=== PATIENT | female | born 1985 | race Caucasian/White ===

== ENCOUNTER 2017-04-03 11:59 | Emergency (ER) | payer SELFPAY ==
--- NOTE | 2017-04-03 13:14 | NUR ---
NO ANSWER IN ER LOBBY
--- NOTE | 2017-04-03 14:15 | NUR ---
NO ANSWER IN ER LOBBY
== END 2017-04-03 14:15 | disposition left against medical advice (07) ==
LOC: MED 11:59
DX: R68.89 Other general symptoms and signs (principal); Z53.21 Procedure and treatment not carried out due to patient leaving prior to being seen by health care provider

== ENCOUNTER 2022-02-25 20:41 | Emergency (ER) | payer MEDICAID ==
[~2022-02-25] VITALS: Ht 154.9 cm; Wt 54.4 kg
[2022-02-25 20:45] VITALS: BP 124/68
--- NOTE | 2022-02-25 20:51 | NUR ---
Patient ambulated to bed 6.
[2022-02-25] MEDS ORDERED: KETOROLAC 60 MG/2 ML VIAL IM ONE (21:00)
--- NOTE | 2022-02-25 21:18 | NUR ---
36 YO F BIB SELF FOR PT HEADACHE FOR 3 WEEKS. PAIN 5/10. PT ALSO SAYS SOB FOR 1 WEEK. NAUSEA FOR 1 WEEK . PT TAKES ADVIL FOR PAIN. ; PT ALSO HAS RADIATING PAIN FROM ARMPIT TO PELVIC AREA. PT ALSO FEELS TIRED . PT HAS HX OF LUPUS. SKIN IS PINK/WARM/DRY; AAOX4 WITH EVEN AND STEADY GAIT; LUNGS CLEAR BL; HR EVEN AND REGULAR; PT DENIES ANY FEVER, CP, SOB, OR COUGH AT THIS TIME; VSS; PATIENT POSITIONED FOR COMFORT; HOB ELEVATED; BEDRAILS UP X2; BED DOWN. ER MD MADE AWARE OF PT STATUS. PT HAS COVID VACCINE. RX VIT D , FOLIC ACID , HYDROCYCLINE
--- NOTE | 2022-02-25 22:10 | NUR ---
Dr. Garzon examming patient.
[2022-02-25] MEDS ORDERED: ACETAMINOPHEN EXTRA STRENGTH 500 MG TAB PO ONE (22:15)
--- NOTE | 2022-02-25 22:18 | NUR ---
Blood for labwork drawn from right arm per batch mixer. Patient tolerated well.
[2022-02-25 22:27] LABS: BASOPHILS % (AUTO) 0.3 % (0.0-2.0); EOSINOPHILS # (AUTO) 0.1 K/uL (0-0.4); HEMOGLOBIN 13.7 g/dL (12.0-16.0); LYMPHOCYTES # (AUTO) 1.7 K/uL (2.5-16.5); LYMPHOCYTES % (AUTO) 19.7 % (20.5-51.1); MEAN CORPUSCULAR HEMOGLOBIN 30 pg (27-31); MEAN CORPUSCULAR HGB CONC 34 g/dL (33-37); MEAN CORPUSCULAR VOLUME 88.7 fL (80-94); MONOCYTES # (AUTO) 0.7 K/uL (0.8-1.0); MONOCYTES % (AUTO) 7.9 % (1.7-9.3); NEUTROPHILS % (AUTO) 71.1 % (42.2-75.2); PLATELET COUNT (AUTO) 244 K/uL (140-450); RED BLOOD CELL COUNT(AUTO) 4.51 MIL/uL (4.20-5.40); RED CELL DISTRIBUTION WIDTH 12.6 % (11.6-13.7); WHITE BLOOD COUNT (AUTO) 8.4 K/uL (4.8-10.8)
[2022-02-25 22:27] LABS: APPEARANCE,URINE CLEAR (CLEAR); BILIRUBIN,URINE NEGATIVE (NEGATIVE); BLOOD, URINE NEGATIVE (NEGATIVE); COLOR,URINE YELLOW (YELLOW); LEUKOCYTE ESTERASE ,URINE 1+ (NEGATIVE); NITRITE, URINE NEGATIVE (NEGATIVE); UGLUCOSE NEGATIVE (NEGATIVE)
[2022-02-25 22:37] LABS: RBC,URINE 0-5 /HPF (0-5); WBC,URINE 0-5 /HPF (0-5)
[2022-02-25 22:42] LABS: ALBUMIN 3.3 g/dL (3.4-5.0); ANION GAP 8.5 (8-16); CARBON DIOXIDE 26.2 mmol/L (21-32); CREATININE 0.5 mg/dL (0.6-1.3); POTASSIUM 3.7 mmol/L (3.5-5.1); TOTAL BILIRUBIN 0.3 mg/dL (0.0-1.0)
--- NOTE | 2022-02-25 23:06 | NUR ---
PT LAYING DOWN QUIETLY
[2022-02-25] MEDS ORDERED: ACET-10509 PO (23:20)
[2022-02-25] MEDS ORDERED: IBUP-2213 PO (23:20)
--- NOTE | 2022-02-25 23:42 | NUR ---
Patient discharged with v/s stable. Written and verbal after care instructions given and explained. Patient alert, oriented and verbalized understanding of instructions. Ambulatory with steady gait. All questions addressed prior to discharge. ID band removed. Patient advised to follow up with PMD. Rx of ACETAMETAPHIN / IBRUPROFEN given. Patient educated on indication of medication including possible reaction and side effects. Opportunity to ask questions provided and answered.
--- NOTE | 2022-02-25 23:43 | NUR ---
The patient's care was reviewed and supervised by Ginger Wright RN.
[2022-02-25 23:48] VITALS: BP 121/67
== END 2022-02-25 23:42 | disposition home or self-care (01) ==
LOC: EDBD → MED 20:41
DX: J18.9 Pneumonia, unspecified organism (principal); R51.9 Headache, unspecified
CPT/HCPCS: 36415; 71045; 80053; 81001; 81025; 85025; 87086; 96372; 99284; J1885

== ENCOUNTER 2022-03-02 20:43 | Emergency (ER) | payer MEDICAID ==
[~2022-03-02] VITALS: Ht 154.9 cm; Wt 61.2 kg
[~2022-03-02 20:43] MED LIST: ACET-10509 PO; IBUP-2213 PO
[2022-03-02 21:04] VITALS: BP 137/88
--- NOTE | 2022-03-02 21:09 | NUR ---
PT TAKEN TO LOBBY.
--- NOTE | 2022-03-02 23:21 | NUR ---
PT AMBULATED TO BED 11
--- NOTE | 2022-03-02 23:34 | NUR ---
Note undone in EDM - 03/03/22 at 0148 by OMAR 39 YO/F PRESENTS TO ED W C/O FEELING TIRED, WORN OUT, BONE PAIN "BUT NOT THAT MUCH" X1 DAY AFTER WALKING AROUND AND HEADACHE 6/10 PRESSURE NON-RAD CONSTANT SINCE 1000, + DIARRHEA, + NAUSEA. PT ADDS FEELING STRESSED LATELY AND BELIEVES THE STRESS OR HER VITAMIN D LEVELS MAY BE CAUSING THE SYMPTOMS. PT DENIES ANY CHEST PAIN, SOB, BLURRY VISION, DIZZYNESS, FEVERS, CHILLS, VOMITING OR BLOOD IN STOOL. PT TOOK IBUPROFEN 200 AT 1300 W SOME RELIEF. BREATHING EVEN AND UNLABORED. WILL CONTINUE TO MONITOR. PMH: PRE-DIABETES ALLERHIES: DENIES
--- NOTE | 2022-03-02 23:34 | NUR ---
36 YO/F PRESENTS TO ED W C/O FEELING A SMALL BUMP IN GROING AREA BETWEEN L LEG AND VAGINAL AREA THAT SWELLS WHEN WALKING AND IS PAINFUL 9/10 PULSATING CONSTANT NON-RAD X1 WEEK, + BODY ACHES, CHILLS. PT DENIES ANY FEVERS, N/V/D, PUSULENT DISCHARGE OR URINE SYMPTOMS. PMH: LUPUS ALLERGIES: DENIES
--- NOTE | 2022-03-03 00:03 | NUR ---
Female Supervisor [employer] accompanied female patient for Pelvic Exam.
[2022-03-03] MEDS: cephALEXin 500 MG CAP PO ONE (00:15)
[2022-03-03] MEDS: SULFAMETH/TRIMETH DS 800/160MG 1 TAB PO ONE (00:16)
--- NOTE | 2022-03-03 01:16 | NUR ---
Dr. Leslie examining patient.
[2022-03-03] MEDS: LIDOCAINE MPF 1% 10 MG/ML VIAL INJ ONE (01:33)
--- NOTE | 2022-03-03 01:33 | NUR ---
Female Airframe And Powerplant Mechanic accompanied female patient for i&d procedure of genitalia..
[2022-03-03] MEDS ORDERED: CEPH-588 PO (01:37)
[2022-03-03] MEDS ORDERED: ACET-8386 PO (01:37)
[2022-03-03] MEDS ORDERED: SULF-59 PO (01:37)
[2022-03-03] MEDS ORDERED: NAPR-54 PO (01:37)
[2022-03-03] MEDS: KETOROLAC 60 MG/2 ML VIAL IM ONE (01:57)
[2022-03-03 02:02] VITALS: BP 128/80
--- NOTE | 2022-03-03 02:02 | NUR ---
The patient's care was reviewed and supervised by Ginger Wright RN.
--- NOTE | 2022-03-03 02:02 | NUR ---
Patient discharged with v/s stable. Written and verbal after care instructions given and explained. Patient alert, oriented and verbalized understanding of instructions. Ambulatory with steady gait. All questions addressed prior to discharge. ID band removed. Patient advised to follow up with PMD. Rx of HYDROCODONE/ACETAMINOPHEN 5-325, CEPHALEXIN, NAPROXEN AND BACTRIM DS TABLET given. Patient REVIEWED on indication of medication including possible reaction and side effects. Opportunity to ask questions provided and answered.
== END 2022-03-03 02:02 | disposition home or self-care (01) ==
LOC: EDBD 20:43 → MED 20:43
DX: N75.0 Cyst of Bartholin's gland (principal); R51.9 Headache, unspecified
CPT/HCPCS: 56420; 99284; J1885; J2001

== ENCOUNTER 2022-03-04 08:49 | Emergency (ER) | payer MEDICAID ==
[~2022-03-04] VITALS: Ht 129.5 cm; Wt 60.3 kg
[~2022-03-04 08:49] MED LIST changes: +ACET-8386 PO; +CEPH-588 PO; +NAPR-54 PO; +SULF-59 PO
[2022-03-04 08:53] VITALS: BP 106/43
--- NOTE | 2022-03-04 09:02 | NUR ---
PATIENT AMBULATED TO BED 3.
--- NOTE | 2022-03-04 09:06 | NUR ---
Note undone in EDM - 03/04/22 at 0910 by [email or web address] 36Y FEMALE BIB SELF DUE TO NEEDING RECHECK. PT SEEN FOR BATHOLINE CYST/ABCESS ON L UPPER THIGH/VAGINAL REGION. PT DENIES ANY PAIN AT THIS TIME. PT A&OX4. DENIES ANY FEVER/CHILLS/SOB/N/V. PMH: LUPUS NKA
--- NOTE | 2022-03-04 09:10 | NUR ---
36Y FEMALE BIB SELF DUE TO NEEDING RECHECK. PT SEEN FOR BATHOLINE CYST/ABCESS ON L UPPER THIGH/VAGINAL REGION. UPON ASSESSMENT/PALPATION MINOR CYST NOTED ON PT L UPPER THIGH. NO REDNESS/EDEMA NOTED. PT DENIES ANY PAIN AT THIS TIME. PT A&OX4. DENIES ANY FEVER/CHILLS/SOB/N/V. PMH: LUPUS NKA
--- NOTE | 2022-03-04 09:29 | NUR ---
UPON ASSESSMENT MINOR ABCESS NOTED INSIDE PATIENT VAGINAL REGION. SOME DISCHARGE NOTED WITH MINOR OPENING.
[2022-03-04 09:39] VITALS: BP 106/43
--- NOTE | 2022-03-04 09:40 | NUR ---
Patient discharged with v/s stable. Written and verbal after care instructions given and explained. Patient verbalized understanding. Ambulatory with steady gait. All questions addressed prior to discharge. Advised to follow up with PMD.
== END 2022-03-04 09:40 | disposition home or self-care (01) ==
LOC: MED 08:49
DX: N75.1 Abscess of Bartholin's gland (principal); Z79.1 Long term (current) use of non-steroidal anti-inflammatories (NSAID); Z79.891 Long term (current) use of opiate analgesic; Z79.2 Long term (current) use of antibiotics; Z79.899 Other long term (current) drug therapy
CPT/HCPCS: 99281

== ENCOUNTER 2022-06-10 22:18 | Emergency (ER) | payer MEDICAID ==
[~2022-06-10] VITALS: Ht 154.9 cm; Wt 59.9 kg
[2022-06-10 22:24] VITALS: BP 130/92
--- NOTE | 2022-06-10 22:24 | NUR ---
PT AMBULATED TO BED #9
--- NOTE | 2022-06-10 22:25 | NUR ---
Patient BIB by family from home. C/O MOUTH PAIN X 3 DAYS. Patient reported, had ulcer on her lip and pain for 3 days. PMHx: Abram
--- NOTE | 2022-06-10 22:29 | NUR ---
Dr. Monroy examining patient.
[2022-06-10] MEDS ORDERED: SULF-59 PO ×3 (22:38→22:50)
[2022-06-10 22:42] VITALS: BP 130/92
== END 2022-06-10 22:42 | disposition home or self-care (01) ==
LOC: MED 22:18
DX: K13.0 Diseases of lips (principal)
CPT/HCPCS: 99283

== ENCOUNTER 2022-07-25 15:02 | Emergency (ER) | payer MEDICAID ==
[~2022-07-25] VITALS: Ht 154.9 cm; Wt 61.0 kg
[2022-07-25 15:19] VITALS: BP 133/97
--- NOTE | 2022-07-25 15:24 | NUR ---
PT AMB TO BED 4.
[2022-07-25] MEDS ORDERED: LIDOCAINE MPF 1% 10 MG/ML VIAL INJ ONE (16:30)
--- NOTE | 2022-07-25 16:39 | NUR ---
PT C/O VAGINAL PAIN X5 DAYS, HX OF [place] CYST STATES FEELS SIMILAR. CHAPERONED PA WITH VAGINAL EXAM.
[2022-07-25] MEDS ORDERED: HYDROcodone/APAP 5/325 MG 1 TAB TAB PO ONE (17:20)
[2022-07-25] MEDS ORDERED: ONDANSETRON 4 MG ODT PO ONE (17:20)
[2022-07-25] MEDS ORDERED: AMOX-1230 PO (17:22)
[2022-07-25] MEDS ORDERED: IBUP-2213 PO (17:22)
[2022-07-25 17:32] VITALS: BP 115/70
== END 2022-07-25 17:32 | disposition home or self-care (01) ==
LOC: MED 15:02
DX: N75.1 Abscess of Bartholin's gland (principal)
CPT/HCPCS: 56405; 81002; 81025; 99284; J2001; Q0162

== ENCOUNTER 2022-07-28 08:29 | Emergency (ER) | payer MEDICAID ==
[~2022-07-28] VITALS: Ht 157.5 cm; Wt 60.0 kg
[~2022-07-28 08:29] MED LIST changes: +AMOX-1230 PO
[2022-07-28 08:50] VITALS: BP 117/84
--- NOTE | 2022-07-28 10:19 | NUR ---
37/F PRESENTS TO ED FOR RECHECK. PATIENT HAD A [place] CYST DRAINED AND PACKED HERE ON WEDNESDAY AND WAS TOLD TO RETURN TODAY FOR RECHECK. PATIENT DENIES WORSENING PAIN, FEVERS OR CHILLS. NO REDNESS OR TENDERNESS TO SITE, PATIENT DENIES ANY OTHER MEDICAL COMPLAINTS AT THIS TIME.
--- NOTE | 2022-07-28 10:47 | NUR ---
Female Is Architect accompanied female patient DURING Exam.
--- NOTE | 2022-07-28 11:10 | NUR ---
PT LEFT WITHOUT D/C WORK OR INSTRUCTIONS
== END 2022-07-28 11:10 | disposition home or self-care (01) ==
LOC: MED 08:29
DX: N75.0 Cyst of Bartholin's gland (principal); Z48.00 Encounter for change or removal of nonsurgical wound dressing
CPT/HCPCS: 99281

== ENCOUNTER 2023-10-08 21:58 | Emergency (ER) | payer MEDICAID ==
[~2023-10-08] VITALS: Ht 154.9 cm; Wt 61.2 kg
[~2023-10-08 21:58] MED LIST changes: -ACET-8386 PO; +ACET-8905 PO
[2023-10-08 22:05] VITALS: BP 126/82; PULSE 84; RESP 16; TEMP 97.7; O2SAT 100
[2023-10-08 22:50] LABS: APPEARANCE,URINE HAZY (CLEAR); BILIRUBIN,URINE NEGATIVE (NEGATIVE); BLOOD, URINE 3+ (NEGATIVE); COLOR,URINE YELLOW (YELLOW); LEUKOCYTE ESTERASE ,URINE 2+ (NEGATIVE); NITRITE, URINE POSITIVE (NEGATIVE); PROTEIN,URINE 1+ (NEGATIVE); UGLUCOSE NEGATIVE (NEGATIVE); UROBILINOGEN,URINE 0.2 EU/dL (0.2 - 1)
[2023-10-08 23:09] LABS: RBC,URINE 11-20 (MOD) /HPF (0-5)
[2023-10-08 23:11] LABS: BACTERIA,URINE 3+ /HPF (None Seen); WBC,URINE >25 (MANY) /HPF (0-5)
[2023-10-09] MEDS ORDERED: CEFP200T20 PO (19:34)
[2023-10-09] MEDS ORDERED: PYR100 PO (19:34)
== END 2023-10-09 01:24 | disposition left against medical advice (07) ==
LOC: MED 21:58
DX: N39.0 Urinary tract infection, site not specified (principal); Z53.21 Procedure and treatment not carried out due to patient leaving prior to being seen by health care provider
CPT/HCPCS: 81001; 81025; 87086; 99281

== ENCOUNTER 2023-10-09 19:12 | Emergency (ER) | payer MEDICAID ==
[~2023-10-09] VITALS: Ht 154.9 cm; Wt 61.2 kg
[2023-10-09 19:19] VITALS: BP 131/85; PULSE 74; RESP 16; TEMP 98.1; O2SAT 100
[2023-10-09] MEDS ORDERED: PYR100 PO (19:34)
[2023-10-09] MEDS ORDERED: CEFP200T20 PO (19:34)
[2023-10-09] MEDS ORDERED: cefTRIAXone 1,000 MG in LIDOCAINE MPF 1% 2.1 ML IM ONE (19:35)
[2023-10-09] MEDS ORDERED: LIDOCAINE MPF 1% 5 ML ONE (19:44)
[2023-10-09] MEDS ORDERED: cefTRIAXone 1,000 MG VIAL ONE (19:44)
[2023-10-09 20:06] VITALS: BP 128/88; PULSE 81; RESP 16; TEMP 98.2; O2SAT 98
== END 2023-10-09 20:06 | disposition home or self-care (01) ==
LOC: MED 19:12
DX: N39.0 Urinary tract infection, site not specified (principal); Z79.899 Other long term (current) drug therapy
CPT/HCPCS: 96372; 99283; J0696; J2001